=== PATIENT | male | born 1965 | race Caucasian/White ===

== ENCOUNTER 2024-04-21 07:30 | Day surgery (SDC) | payer BC ==
[2024-04-21] MEDS: Lactated Ringers 1,000 ML IV SCH (07:50)
[2024-04-21] MEDS ORDERED: propofoL 500 MG/50 ML 50 ML ONE ×2 (08:37→08:53)
[2024-04-21] MEDS ORDERED: fentaNYL 100 MCG/2 ML SDV ONE (08:40)
[2024-04-21] MEDS ORDERED: Ketamine HCL/NACL, ISO-OSM 50 MG/5 ML Syringe ONE (08:40)
== END 2024-04-21 10:05 | disposition home or self-care (01) ==
LOC: MW.SDS 07:30
PROVIDERS: ATTEND Surgery
DX: D12.2 Benign neoplasm of ascending colon (principal); K62.1 Rectal polyp; K57.30 Diverticulosis of large intestine without perforation or abscess without bleeding; Z86.0100 Personal history of colon polyps, unspecified; K64.8 Other hemorrhoids; F41.9 Anxiety disorder, unspecified; Z87.891 Personal history of nicotine dependence
CPT/HCPCS: 45380; 45385; J2704; J3010; J7120; 00811; J3490